=== PATIENT | male | born 1965 | race African-American/Black ===

== ENCOUNTER 2016-10-20 17:53 | Emergency (ER) | payer SELFPAY ==
[~2016-10-20] VITALS: Ht 167.6 cm; Wt 106.0 kg
[2016-10-20] MEDS ORDERED: LIDOCAINE HCL/EPINEPHRINE 1%-EPI 1:100,000 20 ML VIAL MC ONE (18:45)
[2016-10-20] MEDS ORDERED: LIDOCAINE HCL 1% 20ML VIAL (Pyxis) INJ MC ONE (19:15)
[2016-10-20 19:30] VITALS: BP 142/79
== END 2016-10-20 20:17 | disposition home or self-care (01) ==
LOC: ER 17:54
PROC: 0RSWXZZ Reposition Right Finger Phalangeal Joint, External Approach (ICD-10-PCS; principal; 2016-10-20)
DX: S63.288A Dislocation of proximal interphalangeal joint of other finger, initial encounter (principal); S00.83XA Contusion of other part of head, initial encounter; T14.8 Other injury of unspecified body region; I10 Essential (primary) hypertension; F17.210 Nicotine dependence, cigarettes, uncomplicated; W05.1XXA Fall from non-moving nonmotorized scooter, initial encounter; Y93.89 Activity, other specified; Y92.89 Other specified places as the place of occurrence of the external cause
CPT/HCPCS: 26770; 73130; 99284; J3490; Z7610